=== PATIENT | female | born 1955 ===

== ENCOUNTER → 2016-05-10 | Outpatient (REF) | payer BC | LOC: LAB 09:14 | PROVIDERS: ATTEND Nurse Practitioner Family | DX: Z53.9 Procedure and treatment not carried out, unspecified reason (principal) ==

== ENCOUNTER → 2016-06-14 | Outpatient (REF) | payer BC ==
[~2016-06-14] MED LIST: SULF-228 PO
== END ==
LOC: LAB 15:05
PROVIDERS: ATTEND Family Medicine
DX: N64.4 Mastodynia (principal)
CPT/HCPCS: 84146